=== PATIENT | male | born 1955 | race Caucasian/White ===

== ENCOUNTER → 2022-09-26 14:38 | Outpatient (REF) | payer MEDICARE, SELFPAY ==
--- NOTE | 2022-09-26 14:48 | CA_ITS ---
Transthoracic Echocardiogram Patient (Last, First, Middle): Ralf Royal, Gender: Male Date of : 1955 Age: 67 Procedure Date: 09/26/2022 Procedure Type: Transthoracic Echocardiogram Location: [facility] Height: 175.26 cm Weight: 119.3 kg BSA: 2.32 m2 Heart Rate: bpm BP: 138 / 94 mmHg Customer Sales Service Manager: CORAZON Referring MD: Marisa May PA-C Set Up Operator: Jose Stockton MD Symptoms: CARDIAC MURMUR Study Quality: Fair ECG Rhythm: Sinus Conclusions: - 1. Normal LV systolic function with pseudonormal filling pattern 2. Mildly dilated left atrium 3. Aesm-gb-wjbnzozh aortic stenosis 4. Upper limits of normal ascending aortic size 5. No gross pericardial effusion Findings Left Ventricle Normal left ventricular size, thickness, and systolic function. The visually estimated ejection fraction is between 55-60%. Spectral Doppler is indicative of a pseudonormal filling pattern. E/E prime ratio is between 8 and 15 consistent with indeterminate filling pressures. Peak GLS is -18.2%, within normal limits. Right Ventricle Normal right ventricular cavity size and systolic function. Atria The left atrium is mildly dilated. Interatrial shunt cannot be excluded. The right atrium is normal in size. Aortic Valve There is moderate calcification of the aortic valve. There is mild to moderate aortic valve stenosis. The peak aortic velocity is 2.85 m/s with a calculated peak gradient of 32 mmHg. The mean gradient is 19 mmHg. The aortic valve area is 1.65 cm2. There is trace (trivial) aortic valve regurgitation. Cannot rule out bicuspid aortic valve Mitral Valve There is mild anterior and posterior mitral leaflet thickening. There is trace mitral valve regurgitation. There is no mitral valve stenosis. Pulmonic Valve The pulmonic valve is likely normal. There is trace pulmonic valve regurgitation. Tricuspid Valve Normal tricuspid valve structure. Tricuspid regurgitation envelope is inadequate for calculation of right ventricular systolic pressure. Normal right atrial pressure. Great Vessels The pulmonary artery was not well visualized. Venous The inferior vena cava is normal in size and collapses greater than 50% with inspiration. Pericardium/Pleural There is no evidence of pericardial effusion. Prior Study Comparison No prior study available for comparison. Measurements 2D Linear Measurements IVSd: 1.04 0.6-0.9/0.6-1.0 cm LVIDd: 5.05 3.9-5.3/4.2-5.9 cm LVIDd Index: 2.18 2.4-3.2/2.2-3.1 cm/m2 LVIDs: 3.31 2.0-3.6 cm LVPWd: 1.00 0.7-1.1 cm LA Diam: 4.40 2.7-3.8/3.0-4.0 cm LAIDs Index: 1.90 1.5-2.3 cm/m2 LV Mass: 236.72 67-162/88-224 g LV Mass Index: 102.03 43-95/49-115 g/m2 LVOT Diam: 2.30 3.0+(-)1.3 cm 2D Systolic Function EF 4C: 58.90 >55% EF 2C: 57.80 >55% EF BiP: 57.70 >55% Mitral Valve MV Pk E: 1.05 MV PK A: 0.86 MV Decel Time: 176.00 E/A: 1.20 E'Lateral: 10.40 E'Medial: 7.40 E/E' Med: 14.20 E/E' Lat: 10.10 PHT: 52.00 MVA PHT: 4.23 Decel [place]: 5.99 Aortic Valve AoV Pk Lico: 2.85 AoV Mn Lico: 2.06 AoV VTI: 0.78 AoV Pk Grad: 32.00 Aov Mn Grad: 19.00 AVINASH Cont.VTI: 1.65 LVOT LVOT Pk Lico: 1.30 LVOT Mn Lico: 0.82 LVOT VTI: 0.31 LVOT Pk Grad: 7.00 LVOT Mn Grad: 3.00 LVOT Diam: 2.30 LVOT Area: 4.15 Diastolic Function MV Pk E: 1.05 MV Pk A: 0.86 E/A: 1.20 E'Medial: 7.40 E/E' Med: 14.20 E' Laterial: 10.40 E/E' Lat: 10.10 Right Ventricle TAPSE (mm): 24.90 TVS' Lico: 14.00 Tricuspid Valve RA Press: 8.00 Great Vessels Aorta Sinus of Valsalva: 3.59 2.0-3.[address] [place]: 2.66 1.7-3.4 cm Ao Asc: 3.60 2.1-3.4 cm Updated in Other Vendor System with Status of Final Jose Stockton MD electronically signed on 09/26/2022 5:03:40 PM with status of Final
== END ==
LOC: HO.CARD 14:38
PROVIDERS: PCP Physician Assistant Medical; Visit Provider Physician Assistant Medical
DX: R01.1 Cardiac murmur, unspecified (principal)
CPT/HCPCS: 93306; 93356